=== PATIENT | male | born 1985 ===

== ENCOUNTER 2024-08-22 16:46 | Emergency (ER) | payer MEDICARE, MEDICAID ==
[~2024-08-22] VITALS: Ht 170.2 cm; Wt 90.0 kg
[2024-08-22 16:57] VITALS: TEMP 96.8
[2024-08-22 19:11] LABS: ALANINE AMINOTRANSFERASE 60 U/L (12-78); ALBUMIN 3.8 G/DL (3.4-5.0); ALBUMIN/GLOBULIN RATIO 0.8 (1.1-1.5); ALKALINE PHOSPHATASE 127 IU/L (46-116); ANION GAP 11 (8-16); ASPARTATE AMINO TRANSFERASE 20 U/L (10-37); BILIRUBIN,TOTAL 1.5 MG/DL (0.1-1.0); BLOOD UREA NITROGEN 11 MG/DL (7-18); BUN/CREATININE RATIO 12.9 (10.0-20.0); CALCIUM 9.7 MG/DL (8.5-10.1); CHLORIDE 92 MMOL/L (99-107); CREATININE 0.85 MG/DL (0.60-1.10); GLUCOSE 106 MG/DL (70-104); POTASSIUM 3.3 MMOL/L (3.5-5.1); SODIUM 132 MMOL/L (135-145); TOTAL PROTEIN 8.6 G/DL (6.4-8.2); eCRCL 109 ML/MIN; eGFR > 90 ML/MIN
[2024-08-22 19:14] LABS: BASOPHILS % (AUTO) 0.2 % (0-1); EOSINOPHILS % (AUTO) 0 % (0-6); HEMATOCRIT 49.8 % (42.0-52.0); HEMOGLOBIN 17.2 g/dl (14.0-17.9); LYMPHOCYTES # (AUTO) 1.2 X10'3 (1.1-4.8); LYMPHOCYTES % (AUTO) 6.5 % (21-51); MEAN CORPUSCULAR HGB CONC 34.4 g/dL (33.0-36.5); MEAN CORPUSCULAR VOLUME 98.6 FL (78-98); MEAN PLATELET VOLUME 9.7 FL (7.4-10.4); MONOCYTES # (AUTO) 1.1 X10'3 (0-0.9); MONOCYTES % (AUTO) 5.7 % (2-12); NEUTROPHILS # (AUTO) 16.2 X10'3 (1.8-7.7); NEUTROPHILS % (AUTO) 87.6 % (42-75); PLATELET COUNT 207 X10'3 (140-440); RED BLOOD COUNT 5.05 X10'6 (4.70-6.10); RED CELL DISTRIBUTION WIDTH 15.5 % (11.5-14.5); WHITE BLOOD COUNT 18.5 X10'3 (4.5-11.0)
[2024-08-22 19:19] LABS: PRO BRAIN NATRIURETIC PEPTIDE 556 PG/ML (0-125)
[2024-08-22] MEDS: normal saline 1000ml 1,000 ML IV ONE (19:24)
[2024-08-22 20:07] LABS: CLARITY,URINE CLEAR (Clear); COLOR,URINE ORANGE (Yellow); UA COLLECTION TYPE VOIDED
[2024-08-22 20:09] LABS: BACTERIA,URINE 2+ /HPF (Neg); RBC,URINE 0-2 /HPF (0-2); SQUAMOUS EPITHELIAL CELL,UR FEW /LPF (FEW); WBC,URINE 0-4 /HPF (0-4)
[2024-08-22] MEDS: LORazepam 2 mg/ml vial IV ONE (20:30)
[2024-08-22] MEDS: ondansetron/PF 4mg/2ml inj IV ONE (20:30)
[2024-08-22] MEDS: thiamine 100mg/ml 2ml inj. IV ONE (20:30)
[2024-08-22] MEDS: chlordiazePOXIDE 25mg capsule PO ONE (21:10)
[2024-08-22] MEDS: folic acid 1mg/0.2ml inj IV ONE (21:10)
[2024-08-22] MEDS ORDERED: CHLO25CA10 PO (21:29)
[2024-08-22] MEDS ORDERED: CEFU250T95 PO (21:29)
[2024-08-22 21:30] VITALS: BP 166/99; PULSE 100; RESP 20; O2SAT 98
[2024-08-22] MEDS ORDERED: HYDR-3686 PO (21:30)
== END 2024-08-22 21:31 | disposition home or self-care (01) ==
LOC: ER 16:47
DX: F15.90 Other stimulant use, unspecified, uncomplicated (principal); F10.20 Alcohol dependence, uncomplicated; N39.0 Urinary tract infection, site not specified; E86.0 Dehydration; I10 Essential (primary) hypertension; Z88.5 Allergy status to narcotic agent; Z88.3 Allergy status to other anti-infective agents; Y90.9 Presence of alcohol in blood, level not specified
CPT/HCPCS: 36415; 71045; 80053; 81001; 83880; 84484; 85025; 93005; 96361; 96374; 96375; 99285; J2060; J2405; J3411; J3490; J7030